=== PATIENT | male | born 1960 | race Caucasian/White ===

== ENCOUNTER 2022-07-20 13:22 | Emergency (ER) | payer OTHER ==
[~2022-07-20] VITALS: Ht 175.3 cm; Wt 124.7 kg
[2022-07-20] MEDS ORDERED: GABAPENTIN600 MG PO (13:56)
[2022-07-20] MEDS ORDERED: LISINOPRIL40 MG PO (13:56)
[2022-07-20] MEDS ORDERED: TRAMADOL HCL50 MG PO (14:22)
[2022-07-20] MEDS ORDERED: IBU600 MG PO (14:22)
== END 2022-07-20 14:44 | disposition home or self-care (01) ==
LOC: ED 13:22
DX: S80.02XA Contusion of left knee, initial encounter (principal); W22.8XXA Striking against or struck by other objects, initial encounter; Z79.899 Other long term (current) drug therapy
CPT/HCPCS: 73560; 99283-25; A9270